=== PATIENT | male | born 1995 ===

== ENCOUNTER → 2018-05-19 | Outpatient (REF) | payer SELFPAY, OTHER ==
[2018-05-19 23:04] LABS: CHLAMYDIA DNA AMPLIFICATION NEGATIVE (NEGATIVE); GC DNA AMPLIFICATION NEGATIVE (NEGATIVE)
== END ==
LOC: M LAB REF 05-20 13:35
DX: Z13.9 Encounter for screening, unspecified (principal)
CPT/HCPCS: 87591